=== PATIENT | male | born 1950 | race Hispanic/Latino ===

== ENCOUNTER 2018-01-03 20:50 | Emergency (ER) | payer MEDICARE ==
[~2018-01-03] VITALS: Ht 170.2 cm; Wt 88.5 kg
[2018-01-03] MEDS ORDERED: ACETAMINOPHEN 1000 MG/100 ML IV STA (21:04)
[2018-01-03] MEDS ORDERED: NIFEDIPINE 10 MG CAP PO STA (21:07)
[2018-01-03 21:24] LABS: BASOPHILS # (AUTO) 0.1 (0.0-0.1); BASOPHILS % 0.8 % (0.0-1.0); EOSINOPHILS # (AUTO) 0.4 (0.0-0.4); EOSINOPHILS % 3.4 % (0.0-6.0); HEMOGLOBIN 16.3 g/dL (14.0-18.0); LYMPHOCYTES # (AUTO) 2.8 (1.0-3.2); LYMPHOCYTES % 24.7 % (18.0-39.1); MEAN CORPUSCULAR HEMOGLOBIN 30.6 pg (28-32); MEAN CORPUSCULAR VOLUME 90.2 fL (81-99); NEUTROPHILS # (AUTO) 6.9 (2.1-6.9); NEUTROPHILS % 61.7 % (38.7-80.0); PLATELET COUNT 221 x10e3/uL (140-360); RED BLOOD COUNT 5.32 x10e6/uL (4.3-5.7); RED CELL DISTRIBUTION WIDTH 13.8 % (11.7-14.4)
[2018-01-03 21:28] LABS: INR 1.03; PROTHROMBIN TIME 12.7 seconds (11.9-14.5)
[2018-01-03 21:29] LABS: PARTIAL THROMBOPLASTIN TIME 33.7 seconds (23.8-35.5)
[2018-01-03 21:33] LABS: BILIRUBIN,URINE NEGATIVE (NEGATIVE); CLARITY,URINE CLEAR (CLEAR); COLOR,URINE YELLOW (YELLOW); KETONES,URINE NEGATIVE (NEGATIVE); LEUKOCYTE ESTERASE ,URINE NEGATIVE (NEGATIVE); NITRITE,URINE NEGATIVE (NEGATIVE); PROTEIN,URINE DIPSTICK 1+ (NEGATIVE); URINE UROBILINOGEN 0.2 mg/dL (0.2 - 1)
[2018-01-03 21:36] LABS: ALANINE AMINOTRANSFERASE 21 IU/L (0-55); ALBUMIN/GLOBULIN RATIO 1.1 (0.8-2.0); ALKALINE PHOSPHATASE 64 IU/L (40-150); ANION GAP 13.7 mmol/L (8-16); BLOOD UREA NITROGEN 10 mg/dL (7-26); BUN/CREATININE RATIO 12 (6-25); CALCIUM 9.8 mg/dL (8.4-10.2); CARBON DIOXIDE 25 mmol/L (22-29); CHLORIDE 102 mmol/L (98-107); CREATININE, SERUM 0.81 mg/dL (0.72-1.25); EST GLOMERULAR FILTRATION RATE > 60 ML/MIN (60-); GLUCOSE 149 mg/dL (74-118); POTASSIUM 3.7 mmol/L (3.5-5.1); SODIUM 137 mmol/L (136-145)
[2018-01-03 21:41] LABS: BACTERIA,URINE FEW /HPF; EPITHELIAL CELLS,URINE FEW /LPF
--- NOTE | 2018-01-03 23:14 | Diagnostic Imaging Report ---
CERVICAL SPINE 4 OR 5 VIEWS HISTORY: Pain COMPARISON: None FINDINGS: Bones: The cervical spine is visualized from the skull base to the top of T1. There is evidence of degenerative disc changes from C3-4 through C7-T1 with associated uncovertebral arthropathy at C5-6 and C6-7 resulting in moderate neuroforaminal stenosis left greater than right No displaced fracture. Osseous alignment is within normal limits. Joints: The joint spaces are well-maintained. Soft tissues: Calcification along the inferior nuchal ligament IMPRESSION: 1. No acute radiographic abnormality. 2. Degenerative changes of the intervertebral disc are better noted at the lower spine with associated uncovertebral arthropathy at C5-6 and C6-7 with predominantly left neural foraminal stenosis Signed by: Dr. Thor Lea M.D. on 01/03/2018 11:10 PM
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
== END 2018-01-04 00:15 | disposition home or self-care (01) ==
LOC: ER 20:50
DX: R31.9 Hematuria, unspecified (principal); M54.2 Cervicalgia; S13.4XXA Sprain of ligaments of cervical spine, initial encounter; I10 Essential (primary) hypertension
CPT/HCPCS: 36415; 72050; 72125; 80053; 81001; 85025; 85610; 85730; 87086; 99284

== ENCOUNTER 2019-01-04 14:00 | Emergency (ER) | payer SELFPAY ==
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
--- NOTE | 2019-01-04 15:00 | NUR ---
NO RESPONCE FROM LOBBY
== END 2019-01-04 15:33 | disposition short-term general hospital (02) ==
LOC: ER 14:00